=== PATIENT | female | born 1955 | race American Indian/Alaskan Native ===

== ENCOUNTER 2020-07-27 08:29 | Outpatient (CLI) | payer OTHER ==
[2020-07-27] MEDS ORDERED: ALBUTEROL 2.5 MG/3 ML NEBU IH ONE (09:38)
== END 2020-07-27 08:30 | disposition home or self-care (01) ==
LOC: PF 08:29
PROVIDERS: ATTEND Internal Medicine
DX: J44.9 Chronic obstructive pulmonary disease, unspecified (principal); I10 Essential (primary) hypertension
CPT/HCPCS: 94060; 94640; A9270